=== PATIENT | male | born 1965 | race Caucasian/White ===

== ENCOUNTER 2017-01-14 14:19 | Emergency (ER) | payer OTHER ==
[~2017-01-14] VITALS: Wt 80.0 kg
[2017-01-14] MEDS ORDERED: ADENOSINE 2 ML ONE (14:28)
--- NOTE | 2017-01-14 14:32 | ERD ---
ER Documentation Chief Complaint Chief Complaint palpitations onset 30 min ago HPI . The patient is a 51-year-old male, presenting to the ER because of acute palpitation that began about 30 minutes prior to arrival. He had similar symptom about a month ago when he was hospitalized at [facility] and discharged with medication. However he did not continue the medication and has not follow-up with the doctor. He denies syncope, near syncope, dizziness, neck pain, chest pain, dyspnea, abdominal pain, vomiting, dysuria, diarrhea. He denies smoking or drinking not using illicit drug Past medical history: History of SVT Past surgical history: None ROS All systems reviewed and are negative except as per history of present illness. Medications Home Meds Active Scripts Metoprolol Tartrate* (Lopressor*) 25 Mg Tablet, 25 MG PO DAILY, #10 TAB Prov:SARAH DOAN MD 01/14/17 Metoprolol Succinate* (Toprol XL*) 50 Mg Tab.er.24h, 25 MG PO DAILY, #10 TAB Prov:SARAH DOAN MD 01/14/17 Reported Medications Atorvastatin* (Atorvastatin*) 80 Mg Tablet, 80 MG PO QHS, #30 TAB 01/14/17 Metoprolol Tartrate* (Lopressor*) 25 Mg Tab, 25 MG PO BID, #60 TAB 01/14/17 Aspirin (Low Dose Aspirin) 81 Mg Tablet.dr, 81 MG PO DAILY, #30 TAB 01/14/17 Allergies Allergies: Coded Allergies: No Known Allergy (Unverified , 01/14/17) PMhx/Soc Anesthesia Reaction: No Hx Neurological Disorder: No Hx Respiratory Disorders: No Hx Cardiac Disorders: Yes (heart palpations) Hx Psychiatric Problems: No Hx Miscellaneous Medical Probl: Yes (neuropathic problems) Hx Alcohol Use: Yes (occ) Hx Substance Use: No Hx Tobacco Use: No Smoking Status: Never smoker Physical Exam Vitals Vital Signs Date Time Temp Pulse Resp B/P Pulse Ox O2 Delivery O2 Flow Rate FiO2 01/14/17 15:55 102 16 109/78 100 Room Air 01/14/17 14:22 98.2 211 20 123/79 99 Physical Exam Const: No acute distress. Head: Atraumatic. Eyes: Normal Conjunctiva. ENT: Normal External Ears, Nose and Mouth. Neck: Full range of motion. No meningismus. Resp: Clear to auscultation bilaterally. Cardio: Regular Tachycardic Abd: Soft, non distended, normal bowel sounds, non tender. Skin: No petechiae or rashes. Back: No midline or flank tenderness. Ext: No cyanosis, or edema. Neur: Awake and alert. No focal deficit Psych: Normal Mood and Affect. Result Diagram: 01/14/17 1440 01/14/17 1440 Results 24 hrs Laboratory Tests Test 01/14/17 14:33 01/14/17 14:40 01/14/17 14:45 Ethyl Alcohol Level < 10.0mg/dl White Blood Count 13.110^3/ul Red Blood Count 5.3310^6/ul Hemoglobin 16.1g/dl Hematocrit 47.8% Mean Corpuscular Volume 89.7fl Mean Corpuscular Hemoglobin 30.2pg Mean Corpuscular Hemoglobin Concent 33.7g/dl Red Cell Distribution Width 12.2% Platelet Count 10155^3/UL Mean Platelet Volume 10.5fl Neutrophils % 51.6% Lymphocytes % 37.1% Monocytes % 9.1% Eosinophils % 1.0% Basophils % 0.8% Nucleated Red Blood Cells % 0.0/100WBC Neutrophils # 6.810^3/ul Lymphocytes # 4.910^3/ul Monocytes # 1.210^3/ul Eosinophils # 0.110^3/ul Basophils # 0.110^3/ul Nucleated Red Blood Cells # 0.010^3/ul Sodium Level 147mmol/L Potassium Level 3.8mmol/L Chloride Level 103mmol/L Carbon Dioxide Level 30mmol/L Anion Gap 18 Blood Urea Nitrogen 17mg/dl Creatinine 1.28mg/dl Glucose Level 99mg/dl Calcium Level 9.7mg/dl Magnesium Level 2.0mg/dl Creatine Kinase 248IU/L Creatinine Kinase MB (Mass) 3.87ng/ml Troponin I < 0.012ng/ml Thyroid Stimulating Hormone (TSH) 1.010MIU/L Urine Opiates Screen Positive Urine Barbiturates Negative Urine Amphetamines Screen POSITIVE Urine Benzodiazepines Screen Negative Urine Cocaine Screen Negative Urine Cannabinoids Negative Current Medications Medications (Trade) Dose Ordered Sig/[place] Route PRN Reason Start Time Stop Time Status Last Admin Dose Admin Adenosine (Adenosine) 6 mg ONCE ONCE IV 01/14/17 15:00 01/14/17 15:01 DC 01/14/17 14:38 Procedures/MDM [place] [id number] Radiology Main Line: [phone] DIAGNOSTIC IMAGING REPORT Patient: PRISCILA PETERS : 1965 Age: 51 Sex: M MR #: [id number] DOS: 01/14/17 1432 Ordering MD: SARAH DOAN MD Location: E/R Room/Bed: PROCEDURE: XR Chest. CLINICAL INDICATION: Chest pain TECHNIQUE: A frontal view of the chest was performed. COMPARISON: None FINDINGS: The cardiomediastinal silhouette is within normal limits. The lungs are clear. No signs of pleural fluid or pneumothorax are seen. The osseous structures and soft tissues are unremarkable. IMPRESSION: No evidence for active cardiopulmonary disease. RPTAT: QQ .Elaine Hampton MD, MD Date Time Electronically viewed and signed by .Elaine Hampton MD, MD on 01/14/2017 15:26 .F/ CC: SARAH DOAN MD MEDICAL MAKING DECISION: The patient is a 51-year-old male, presenting with recurrent SVT due to medical noncompliance and acute amphetamine abuse. He was treated with adenosine 6 mg IV aborted the arrhythmia. He has been observed in the ER for couple hours with any recurrent symptoms, is stable for outpatient follow-up. The differential diagnoses considered include but are not limited to hyperthyroidism, electrolyte abnormality, cardiac ischemia, PE, CAD Departure Diagnosis: Primary Impression: SVT (supraventricular tachycardia) Additional Impression: Amphetamine abuse Condition: Good Comments He was discharged with metoprolol 25 mg daily I discussed the findings with the patient. I advised the patient to follow-up with his surgery attendant in the morning and return if any concern. Disclaimer: Inadvertent spelling and grammatical errors are likely due to EHR/ dictation software use and do not reflect on the overall quality of patient care. Also, please note that the electronic time recorded on this note does not necessarily reflect the actual time of the patient encounter. SARAH DOAN MD Jan 14, 2017 14:32
[2017-01-14] MEDS ORDERED: ASPI-664 PO (14:46)
[2017-01-14] MEDS ORDERED: METO-448 PO (14:47)
[2017-01-14] MEDS ORDERED: ATOR80TA75 PO (14:47)
[2017-01-14 14:49] LABS: BASOPHIL # 0.1 10^3/ul (0.0-0.1); BASOPHILS % 0.8 % (0.0-2.0); EOSINOPHILS # 0.1 10^3/ul (0.0-0.5); HEMATOCRIT 47.8 % (42.0-52.0); HEMOGLOBIN 16.1 g/dl (14.0-18.0); LYMPHOCYTES # 4.9 10^3/ul (0.8-2.9); LYMPHOCYTES % 37.1 % (15.0-51.0); MEAN CORPUSCULAR HEMOGLOBIN 30.2 pg (29.0-33.0); MEAN CORPUSCULAR HGB CONC 33.7 g/dl (32.0-37.0); MEAN CORPUSCULAR VOLUME 89.7 fl (82.0-101.0); MEAN PLATELET VOLUME 10.5 fl (7.4-10.4); MONOCYTE # 1.2 10^3/ul (0.3-0.9); MONOCYTES % 9.1 % (0.0-11.0); NEUTROPHIL # 6.8 10^3/ul (1.6-7.5); NEUTROPHILS % 51.6 % (39.0-77.0); PLATELET COUNT 391 10^3/UL (140-415); RED BLOOD COUNT 5.33 10^6/ul (4.70-6.10); RED CELL DISTRIBUTION WIDTH 12.2 % (11.5-14.5); WHITE BLOOD COUNT 13.1 10^3/ul (4.8-10.8)
[2017-01-14] MEDS ORDERED: ADENOSINE 6 MG INJ IV ONE (15:00)
[2017-01-14 15:09] LABS: ANION GAP 18 (8-16); BLOOD UREA NITROGEN 17 mg/dl (7-20); CALCIUM 9.7 mg/dl (8.4-10.2); CARBON DIOXIDE 30 mmol/L (21-31); CHLORIDE 103 mmol/L (97-110); CREATININE 1.28 mg/dl (0.61-1.24); GLUCOSE 99 mg/dl (70-220); POTASSIUM 3.8 mmol/L (3.5-5.1); SODIUM 147 mmol/L (135-144)
[2017-01-14 15:23] LABS: TROPONIN-I < 0.012 ng/ml (0.00-0.12)
--- NOTE | 2017-01-14 15:26 | RADRPT ---
PROCEDURE: XR Chest. CLINICAL INDICATION: Chest pain TECHNIQUE: A frontal view of the chest was performed. COMPARISON: None FINDINGS: The cardiomediastinal silhouette is within normal limits. The lungs are clear. No signs of pleural f luid or pneumothorax are seen. The osseous structures and soft tissues are unremarkable. IMPRESSION: No evidence for active cardiopulmonary disease. RPTAT: QQ .Elaine Hampton MD, MD Date Time Electronically viewed and signed by .Elaine Hampton MD, MD on 01/14/2017 15:26 .F/
[2017-01-14 15:44] LABS: OPIATES Positive (NEGATIVE)
[2017-01-14 15:50] LABS: CREATINE KINASE 248 IU/L (23-200)
[2017-01-14 15:53] LABS: BARBITURATES Negative (NEGATIVE); BENZODIAZEPINES Negative (NEGATIVE); CANNABINOIDS Negative (NEGATIVE); COCAINE Negative (NEGATIVE)
[2017-01-14 15:55] VITALS: BP 109/78; PULSE 102; RESP 16
[2017-01-14] MEDS ORDERED: METO-319 PO (16:01)
[2017-01-14] MEDS ORDERED: METO25TA4 PO (16:04)
[2017-01-14 16:10] LABS: CK-MB 3.87 ng/ml (0.0-2.4)
== END 2017-01-14 16:08 | disposition home or self-care (01) ==
LOC: E/R 14:19
DX: I47.1 Supraventricular tachycardia (principal); R40.2252 Coma scale, best verbal response, oriented, at arrival to emergency department; F15.10 Other stimulant abuse, uncomplicated; R40.2142 Coma scale, eyes open, spontaneous, at arrival to emergency department; R40.2362 Coma scale, best motor response, obeys commands, at arrival to emergency department; Z79.82 Long term (current) use of aspirin
CPT/HCPCS: 36415; 71010; 80048; 80306; 80307; 82550; 82553; 83735; 84443; 84484; 85025; 96374; J0153; Z7502